=== PATIENT | male | born 1950 | race Caucasian/White ===

== ENCOUNTER → 2023-09-25 14:49 | Outpatient (REF) | payer OTHER, SELFPAY | LOC: PAVMRI 14:49 | PROVIDERS: ATTENDING PHYSICIAN Neurological Surgery; FAMILY PHYSICIAN Internal Medicine | DX: M54.16 Radiculopathy, lumbar region (principal) | CPT/HCPCS: 72148 ==

== ENCOUNTER → 2023-09-28 11:36 | Outpatient (REF) | payer OTHER, SELFPAY | LOC: HWRAD 11:36 | PROVIDERS: ATTENDING PHYSICIAN Neurological Surgery; FAMILY PHYSICIAN Internal Medicine | DX: M54.16 Radiculopathy, lumbar region (principal) | CPT/HCPCS: 72110 ==

== ENCOUNTER → 2024-09-15 15:21 | Outpatient (REF) | payer OTHER, SELFPAY | LOC: HWRAD 15:21 | PROVIDERS: ATTENDING PHYSICIAN Internal Medicine Rheumatology; FAMILY PHYSICIAN Internal Medicine | DX: M54.59 Other low back pain (principal); M15.0 Primary generalized (osteo)arthritis | CPT/HCPCS: 72072; 72110; 72202; 73130; 73523; 73564 ==

== ENCOUNTER → 2024-10-24 10:02 | Outpatient (REF) | payer OTHER, SELFPAY | LOC: HWRAD 10:02 | PROVIDERS: ATTENDING PHYSICIAN Internal Medicine | DX: R22.1 Localized swelling, mass and lump, neck (principal) | CPT/HCPCS: 76536 ==

== ENCOUNTER → 2025-05-21 12:46 | Outpatient (REF) | payer OTHER, SELFPAY | LOC: HWRAD 12:46 | PROVIDERS: ATTENDING PHYSICIAN Internal Medicine | DX: R31.9 Hematuria, unspecified (principal) | CPT/HCPCS: 76770 ==

== ENCOUNTER → 2025-06-25 15:45 | Outpatient (REF) | payer OTHER, SELFPAY | LOC: RAD 15:45 | PROVIDERS: ATTENDING PHYSICIAN Physician Assistant Medical; FAMILY PHYSICIAN Internal Medicine | DX: R07.9 Chest pain, unspecified (principal); R06.00 Dyspnea, unspecified | CPT/HCPCS: 71275; Q9967 ==

== ENCOUNTER 2025-07-01 09:49 | Day surgery (SDC) | payer OTHER, SELFPAY ==
[2025-07-01] VITALS (12 sets, daily range): BP systolic 120–152; BP diastolic 58–89; BMI 35.5
[2025-07-01 10:42] LABS: Hematocrit 41.5 % (39.0-52.0); Hemoglobin 13.8 g/dL (13.0-18.0); Mean Corp Hgb Conc. 33.3 g/dL (33.0-37.0); Mean Corpuscular Volume 85.0 fL (80.0-94.0); Platelet Count 222 10^3/uL (130-400); Red Cell Dist. Width 13.6 % (11.5-14.5)
[2025-07-01] MEDS: LOW STRENGTH ASPIRIN 324 MG PO (10:50)
[2025-07-01] MEDS: NSS 1000 IV (12:00)
--- NOTE | 2025-07-01 12:06 | ITS.CL.CATH ---
[facility] - Catheterization
Cardiac Catheterization
Procedure Report:
LEFT HEART CATHETERIZATION
Date of Procedure: July 01, 2025
Procedures performed:
1: Coronary angiography
2: Left ventricular hemodynamic assessment
Primary Care Physician: Dr. Edgar Barker
Primary Account Leader: Dr. Ricardo Foley
INDICATION: 74-year-old man with a past medical history of hypertension who has exertional chest tightness and pressure who is referred for cardiac catheterization. Nuclear perfusion imaging shows no large territory ischemia but in light of
persistent symptoms he is referred for cardiac catheterization. He was taking short acting metoprolol in the morning only along with hydrochlorothiazide. Amlodipine was added however he stopped it due to concern that it was increasing his tinnitus.
ACCESS: The patient was prepped and draped in usual sterile fashion. A 6 [place] sheath was placed in the right radial artery using the Seldinger over the wire technique.
HEMODYNAMIC FINDINGS (mmHg):
LV(s/d,EDP): 168/10, 19
Ao(s/d,m): 168/82, 113
ANGIOGRAPHIC FINDINGS:
Single-plane Left Ventriculography in KAY Projection: Not done. Normal LVEF by recent echo.
Coronary Angiography:
Dominance: Left
Left Main: Large-caliber, short.
Left Anterior Descending: The left anterior descending artery is a medium to large caliber vessel that has a smooth proximal 30 to 40% nonobstructive stenosis. The remainder of the artery is widely patent with only mild luminal irregularities.
Left Circumflex: The left circumflex is a large-caliber dominant vessel. There is a very small high first obtuse marginal branch that courses in a ramus distribution. OM 2 is a large-caliber vessel that is widely patent and appears
angiographically normal. OM 3 is a medium to large caliber vessel that is also widely patent. OM 4 is a small vessel that is patent. OM 5 is a relatively large vessel that is widely patent and feeds the posterolateral wall. The circumflex
terminates into 2 distal bifurcating vessels with 4 vessels coursing in the distal left PDA distribution. There is moderate luminal irregularity with ectasia throughout the circumflex and at worst a 40 to 50% stenosis after the large OM 5.
Right Coronary: Small nondominant vessel.
Fluoroscopy Time (min): 4.4
Radiation Dose (mGy): 549
DAP (Gy.cm2): 45
Closure device: None. A TR band was applied for hemostasis at the right wrist.
Complications: None.
ASSESSMENT:
1: Moderate nonobstructive coronary disease as described above. I see no clear evidence of obstructive disease consistent with the benign nuclear perfusion findings.
2: Systemic hypertension with elevated filling pressures.
CONCLUSIONS and RECOMMENDATIONS:
1: Medical therapy for CAD and hypertension. Switch to Toprol XL 25 mg daily and add diltiazem CD 240 mg for tighter blood pressure control and possible efficacy in treating small vessel angina. Start atorvastatin 40 mg daily. Clinical follow-up
with Dr. Foley as scheduled.
Charline Dee M.D.
== END 2025-07-01 14:33 | disposition home or self-care (01) ==
LOC: CATH 09:49
PROVIDERS: Internal Medicine Interventional Cardiology; ATTENDING PHYSICIAN Internal Medicine Cardiovascular Disease
DX: I25.10 Atherosclerotic heart disease of native coronary artery without angina pectoris (principal); I10 Essential (primary) hypertension; Z79.899 Other long term (current) drug therapy; R07.9 Chest pain, unspecified; E78.5 Hyperlipidemia, unspecified; I71.40 Abdominal aortic aneurysm, without rupture, unspecified; R73.03 Prediabetes
CPT/HCPCS: 85027; 93458; C1769; C1894; Q9967